=== PATIENT | male | born 1995 | race Two or more races ===

== ENCOUNTER 2024-04-28 18:07 | Emergency (ER) | payer MEDICAID ==
[~2024-04-28] VITALS: Ht 188 cm; Wt 62.0 kg
[2024-04-28 18:10] VITALS: BP 136/81; PULSE 68; RESP 15; TEMP 98.6; O2SAT 100
[2024-04-28] MEDS: TETANUS, DIPHTHERIA, PERTUSSIS VAC/PF 0.5ML (>10YR OLD) IM ONE (18:45)
[2024-04-28] MEDS ORDERED: BO1 TP (19:15)
[2024-04-28] MEDS: BACITRACIN ZINC OINT UDPKT TOP ONE (20:15)
[2024-04-28] MEDS: LIDOCAINE HCL/PF 1% 10 MG/ML 5ML VIAL INFIL ONE (20:15)
[2024-04-28 20:30] VITALS: O2SAT 16
== END 2024-04-28 20:50 | disposition home or self-care (01) ==
LOC: ER 18:19
DX: S01.112A Laceration without foreign body of left eyelid and periocular area, initial encounter (principal); S09.90XA Unspecified injury of head, initial encounter; W18.39XA Other fall on same level, initial encounter; Y93.89 Activity, other specified; Y92.89 Other specified places as the place of occurrence of the external cause; Y99.8 Other external cause status
CPT/HCPCS: 73080; 73110; 70450; 70486; 12013; 99284; Z7610 ×2